=== PATIENT | female | born 1965 | race Caucasian/White ===

== ENCOUNTER → 2021-04-21 | Outpatient (CLI) | payer BC | LOC: HEART CORB 13:30 | DX: R07.2 Precordial pain (principal); I10 Essential (primary) hypertension ==

== ENCOUNTER → 2022-03-03 | Outpatient (CLI) | payer BC | LOC: EMI 02-24 10:45 | DX: M50.10 Cervical disc disorder with radiculopathy, unspecified cervical region (principal); M48.02 Spinal stenosis, cervical region; M50.123 Cervical disc disorder at C6-C7 level with radiculopathy | CPT/HCPCS: 72141 ==